=== PATIENT | female | born 1935 | race Caucasian/White ===

== ENCOUNTER 2019-09-12 11:17 | Emergency (ER) | payer MEDICARE, SELFPAY ==
[2019-09-12 11:18] VITALS: BP 160/72; PULSE 71; RESP 20; TEMP 36.9; O2SAT 98; BMI 31.9
--- NOTE | 2019-09-12 11:53 | RAD_ITS ---
STUDY: X-RAY - LEFT WRIST REASON FOR EXAM: Female, 83 years old. FALL. BEST LATERALS DUE TO PTS ABILITY TECHNIQUE: 3 view(s) of the wrist were obtained. COMPARISON: None. FINDINGS: There is a nondisplaced comminuted fracture of the distal radial metaphysis with extension of the articular surface. This also is of a nondisplaced transverse fracture of the distal ulnar metaphysis as well as avulsion fracture of the ulnar styloid. Normal radiocarpal articulation. Normal distal radioulnar articulation. Normal carpal bones. Normal carpal articulations. Normal carpometacarpal articulation of the thumb. Normal second through fifth carpometacarpal articulations. Normal visualized metacarpal bones. Soft tissue swelling. RAD/Wrist min 3 Views IMPRESSION: Nondisplaced comminuted fracture of the distal radial metaphysis with extension to the articular surface as well as distal ulnar metaphysis with avulsion of the ulnar styloid. Soft tissue swelling. Electronically Signed: Enzo Mancilla, at 12:43 EST , Service support ,
[2019-09-12] MEDS: HYDROcodone Bitartrate/Apap 5/325 Tablet PO (12:05)
[2019-09-12 12:23] VITALS: BP 170/91; PULSE 61; RESP 18; O2SAT 97
--- NOTE | 2019-09-12 13:22 | ED.DCSUM_ITS ---
- ER Visit Summary Date of Service: 09/12/19 Chief Complaint: Fall History of Present Illness: The patient is a 83 F who presents with left wrist injury that occurred after a fall today. Patient states she tripped over a bucket and mop handle at home. Patient states she landed on her left wrist. Patient describes her pain as throbbing. Patient states her pain is worse with movement and better with rest. Patient denies any paresthesias or weakness. Patient denies any head injury or loss of consciousness. Patient denies any other injuries. Physical Examination: Vital signs are stable. Patient is afebrile. Patient is in no acute distress. Musculoskeletal exam reveals tenderness over the left distal radius. There is no obvious deformity. There is edema and ecchymosis. Range of motion was limited in all motions of the left wrist secondary to pain. Sensation was intact to light touch in the radial, median, and ulnar areas. Strength is 5/5 in the radial, median, and ulnar areas. Radial pulses are equal bilateral. Capillary refill is less than 2 seconds in all digits. Test Results: X-rays of the left wrist were obtained. There is a comminuted fracture of the left distal radius. There is also an ulnar styloid fracture. These were interpreted by the radiologist and myself. Emergency Department Course and Treatment: Patient was placed in a well-padded AP splint using Ortho-Glass. Neurovascular exam was intact before and after the placement of the splint. Patient states she has an orthopedic physician she wants to follow-up with. Patient was instructed to follow-up with him in 3 to 5 days. Patient was given a prescription for [place]. Patient and family understood and were agreeable with the plan. All questions were answered. Disposition: Discharge home Impression: 1. Acute left distal radius and ulnar fracture This note was generated with [employer] dictation software. It may contain incorrect words, spelling, and punctuation that were not noted in review of the chart prior to signing ED Disposition - Plan for ED Patient: Disposition: Home or Assisted Living Diagnosis: Fracture of distal end of left radius and ulna Instructions: RADIUS AND ULNA FX, No Reduction Required Prescriptions: Hydrocodone Bitart/Apap 5-325 [[place] 5MG-325MG] 1 tab PO Q6H PRN PRN 3 Days #10 tab PRN Reason: Pain Prescription Printed Referrals: Elizabeth Elizalde MD [Primary Care Provider] - Victorino Mora MD [STAFF PHYSICIAN] - 3-5 Days
[2019-09-12 13:47] VITALS: BP 158/97; PULSE 86; RESP 20; O2SAT 96
== END 2019-09-12 13:47 | disposition home or self-care (01) ==
PROVIDERS: Emergency Provider Emergency Medicine; PCP Internal Medicine
DX: S52.502A Unspecified fracture of the lower end of left radius, initial encounter for closed fracture (principal); S52.612A Displaced fracture of left ulna styloid process, initial encounter for closed fracture; W18.09XA Striking against other object with subsequent fall, initial encounter; Y93.9 Activity, unspecified; Y92.9 Unspecified place or not applicable; K21.9 Gastro-esophageal reflux disease without esophagitis; I10 Essential (primary) hypertension; E78.00 Pure hypercholesterolemia, unspecified; Z79.899 Other long term (current) drug therapy
CPT/HCPCS: 29125; 73110; 99284